=== PATIENT | female | born 1960 | race Caucasian/White ===

== ENCOUNTER → 2020-09-12 | Outpatient (CLI) | payer BC ==
[~2020-09-12] MED LIST: ASPI-630 PO; CALC500T30 PO; FERR-36 PO; GLUC1CAP57 PO; MAGN250T10 PO; MELA10TA PO; MULT-245 PO
--- NOTE | 2020-09-13 08:48 | RAD ---
EXAM: 3 views of the right ankle DATE: 09/12/2020 4:43 PM INDICATION: RIGHT ANKLE PAIN COMPARISON: No Prior FINDINGS: No acute fracture or dislocation. Ankle mortise is congruent. Talar dome is intact. Joint spaces are preserved without significant degenerative/proliferative change. No significant soft tissue swelling. IMPRESSION: No acute fracture or dislocation. Electronically signed by: Wellington Mcmahon MD (09/13/2020 8:46 AM) [id number]
== END ==
LOC: RAD 16:38
PROVIDERS: ATTEND Specialist
DX: M25.571 Pain in right ankle and joints of right foot (principal)
CPT/HCPCS: 73610